=== PATIENT | male | born 1950 | race Native Hawaiian/Other Pacific Islander ===

== ENCOUNTER 2016-12-20 09:10 | Emergency (ER) | payer MEDICARE ==
[2016-12-20 09:29] VITALS: TEMP 98.1
--- NOTE | 2016-12-20 10:10 | C.PDOC ---
History Of Present Illness 66 y/o M c PMHx DM p/w episode of shortness of breath earlier this morning. Patient states that he was at home caring for his mother in law who requires 24/ 7 care. He began to feel anxious and worried about being alone with her and began having shortness of breath and a panicked feeling. He called EMS and was brought to the ER where he now states he feels more relaxed. He states that he began having increasing anxiety lately when thinking about his finances and his mortgage with his . He denies ever having seen a psychiatrist or having a panic attack. He denies fever, chills, chest pain, nausea, vomiting, numbness, tingling, weakness. He denies suicidal or homicidal ideation. He denies hallucinations. Time Seen by Provider: 12/20/16 09:46 Chief Complaint (Nursing): Psychiatric Evaluation Past Medical History Vital Signs: Last Vital Signs Temp 98.1 F 12/20/16 09:18 Pulse 78 12/20/16 10:29 Resp 16 12/20/16 10:29 BP 120/84 12/20/16 10:29 Pulse Ox 99 12/20/16 10:29 Surgical History: Appendectomy, Cholecystectomy Family History: States: No Known Family Hx - Social History Hx Alcohol Use: No Hx Substance Use: No - Immunization History Hx Tetanus Toxoid Vaccination: No Hx Influenza Vaccination: No Hx Pneumococcal Vaccination: No Review Of Systems Except As Marked, All Systems Reviewed And Found Negative. Constitutional: Negative for: Fever Cardiovascular: Negative for: Chest Pain Physical Exam - Physical Exam Additional Physical Exam Comments: Constitutional: No acute distress. Head: Normocephalic. Atraumatic. Eyes: PERRL. ENT: Moist mucous membranes. Neck: Supple. Cardiovascular: Regular rate. Radial pulses 2+ bilaterally. Chest: No tenderness. Respiratory: Clear to auscultation bilaterally. GI: Soft. Nontender. Nondistended. Back: No CVA tenderness. Musculoskeletal: No tenderness or swelling of extremities. Skin: No rash. Neurologic: Alert, no focal deficit ED Course And Treatment - Laboratory Results Result Diagrams: 12/20/16 10:20 12/20/16 10:20 O2 Sat by Pulse Oximetry: 100 Medical Decision Making Medical Decision Making: Patient with likely anxiety. No indication for emergent psychiatric evaluation at this time. Disposition - Disposition Referrals: Stu Barajas MD [Staff Provider] - Disposition: HOME/ ROUTINE Disposition Time: 10:55 Condition: STABLE Instructions: Anxiety (ED) Forms: [facility] (Kinyarwanda) - Clinical Impression Clinical Impression: Panic attack
[2016-12-20 10:26] LABS: BASO # 0.1 K/uL (0.0-0.2); BASO % 1.1 % (0.0-2.0); EOS % 0.6 % (0.0-4.0); LYMPH % 14.8 % (20.0-40.0); MEAN CELL VOLUME 88.5 fL (80.0-94.0); MEAN CORPUSCULAR HEMOGLOBIN 29.5 pg (27.0-31.0); MEAN CORPUSCULAR HGB CONC 33.3 g/dL (33.0-37.0); MEAN PLATELET VOLUME 9.3 fL (7.2-11.7); MONO # 0.4 K/uL (0.0-0.8); MONO % 6.6 % (0.0-10.0); RED CELL DISTRIBUTION WIDTH 14.6 % (11.5-14.5); WHITE BLOOD COUNT 6.7 K/uL (4.8-10.8)
[2016-12-20 10:31] VITALS: BP 120/84; PULSE 78; RESP 16
[2016-12-20 10:32] LABS: CHLORIDE 102 mmol/L (98-107); SODIUM 138 mmol/L (132-148)
[2016-12-20 10:33] LABS: POTASSIUM 3.9 mmol/L (3.6-5.2)
[2016-12-20 10:35] LABS: ALB/GLOB RATIO 1.1 (1.0-2.1); ALKALINE PHOSPHATASE 74 U/L (38-126); ALT/SGPT 55 U/L (21-72); AST/SGOT 29 U/L (17-59); BILIRUBIN,TOTAL 1.3 mg/dL (0.2-1.3); BLOOD UREA NITROGEN 15 mg/dL (9-20); CARBON DIOXIDE 24 mmol/L (22-30); GFR AFRICAN-AMERICAN > 60; TOTAL PROTEIN 7.4 g/dL (6.3-8.3)
[2016-12-20 10:36] LABS: CALCIUM 9.3 mg/dl (8.6-10.4); GLUCOSE,RANDOM 208 mg/dL (75-110)
[2016-12-20 10:56] VITALS: O2SAT 100
--- NOTE | 2016-12-23 17:49 | CARD ---
APPROVED REPORT EKG Measurement Heart [id number] <Conclusion> Normal sinus rhythm Normal ECG
== END 2016-12-20 11:02 | disposition home or self-care (01) ==
LOC: C.ER 09:10
DX: F41.0 Panic disorder [episodic paroxysmal anxiety] (principal)